=== PATIENT | female | born 1960 | race Two or more races ===

== ENCOUNTER 2022-02-12 13:37 | Emergency (ER) | payer BC ==
[~2022-02-12] VITALS: Ht 154.9 cm; Wt 71.2 kg
[2022-02-12] MEDS ORDERED: ATORVASTATIN CA10 MG PO (14:19)
[2022-02-12] MEDS ORDERED: PROZAC10 MG PO (14:19)
[2022-02-12] MEDS ORDERED: MOTION SICKNESS25 M1 PO (16:47)
[2022-02-12] MEDS ORDERED: MUCINEX600 MG PO (16:47)
== END 2022-02-12 17:09 | disposition home or self-care (01) ==
LOC: ER 13:37
DX: R42 Dizziness and giddiness (principal); J06.9 Acute upper respiratory infection, unspecified; Z20.822 Contact with and (suspected) exposure to COVID-19